=== PATIENT | male | born 1955 | race Caucasian/White ===

== ENCOUNTER 2016-04-28 14:23 | Emergency (ER) | payer BC ==
[2016-04-28] MEDS ORDERED: hydrALAZINE HCL 20 MG/ML 1 ML VIAL IVP STA (14:41)
--- NOTE | 2016-04-28 14:50 | ED ---
General Adult HPI - General Chief complaint: Recheck/Abnormal Lab/Rx Stated complaint: Dr Sent/ deidra HBP Time Seen by Provider: 04/28/16 14:32 Source: patient Mode of arrival: ambulatory Limitations: no limitations - History of Present Illness Initial comments: This is a 61-year-old male with a history of hypertension or presents emergency room for high blood pressure to his dentist office. Patient states he does have pretty bad whitecoat syndrome. He takes Diovan, hydralazine, and by starlike for his blood pressure. He has not missed any of these medications. He states he has no symptoms at this time. He does have history of A. fib however does not have any palpitations. No chest pain. No headache. No abdominal pain. He was sent in because the blood pressure is too high at the dentist office. - Related Data Home Medications Medication Instructions Recorded Confirmed Apixaban [Eliquis] 5 mg PO BID 11/30/15 04/28/16 Multivitamins, Thera [Multivitamin] 1 tab PO DAILY 11/30/15 04/28/16 Nebivolol HCl [Bystolic] 20 mg PO DAILY 11/30/15 04/28/16 Bethesda Fish Oil 1,600 mg PO DAILY 11/30/15 04/28/16 Valsartan/Hydrochlorothiazide 1 tab PO DAILY 11/30/15 04/28/16 [Valsartan-Hctz 320-25 mg Tab] Amiodarone [Cordarone] 200 mg PO DAILY 04/28/16 04/28/16 hydrALAZINE HCL [Apresoline] 25 mg PO BID 04/28/16 04/28/16 Allergies Allergy/AdvReac Type Severity Reaction Status Date / Time No Known Allergies Allergy Verified 04/28/16 15:16 Review of Systems ROS Statement: Those systems with pertinent positive or pertinent negative responses have been documented in the HPI. ROS Other: All systems not noted in ROS Statement are negative. Past Medical History Past Medical History: Atrial Fibrillation, Hypertension Additional Past Medical History / Comment(s): heart murmer, History of Any Multi-Drug Resistant Organisms: None Reported Past Surgical History: Hernia Repair Additional Past Surgical History / Comment(s): vasectomy Past Anesthesia/Blood Transfusion Reactions: No Reported Reaction Past Psychological History: No Psychological Hx Reported Smoking Status: Former smoker Past Alcohol Use History: None Reported Additional Past Alcohol Use History / Comment(s): quit smoking 2008, smoked for 20 yrs- 1/2 PPD Past Drug Use History: Marijuana Additional Drug Use History / Comment(s): none currently since 10/15/15 - Past Family History Mother Family Medical History: Cancer Father Family Medical History: Cancer General Exam - General Exam Comments Initial Comments: Constitutional: Awake alert Appears comfortable Head: Normocephalic atraumatic Eyes: no conjunctival injection No scleral icterus EOMI Neck: No JVD Supple Heart: Regular rate rhythm normal S1-S2 no murmurs Lungs: Clear to auscultation bilaterally No wheezing No rales Abdomen: Soft nondistended nontender Extremities: Non edematous DP pulses intact Radial pulses intact Neuro: A&Ox3 No focal neurologic deficits Psych: Appropriate mood and affect Limitations: no limitations Course Vital Signs 04/28/16 04/28/16 14:27 15:04 Temperature 97.9 F Pulse Rate 67 62 Respiratory 18 18 Rate Blood Pressure 219/103 186/88 O2 Sat by Pulse 99 97 Oximetry EKG Findings - EKG Comments: EKG Findings:: EKG showing sinus bradycardia with a rate of 57. No ST segment changes. T-wave inversion in lead 3. QTC is 445. RI interval is 216. Other intervals are normal. No ectopy. Medical Decision Making - Medical Decision Making This is a 61-year-old male who presents emergency department for hypertension. Blood pressure was elevated upon arrival at 222/109. The patient was given a dose of hydralazine here. Blood pressure now is 172/91. EKG was unremarkable. The patient was otherwise asymptomatic and does not require any further workup. I told her we can discharge him home. I told him that since beginning the hydralazine in the emergency department that I would make sure to check his blood pressure before he took his nighttime dose of hydralazine. If he looks like his blood pressure is well-controlled I would skip the nighttime dose of hydralazine. Told to return if any worsening or changing symptoms. All questions were answered. Disposition Clinical Impression: Hypertension Disposition: HOME SELF-CARE Condition: Stable Instructions: Hypertension (ED) Referrals: Estefania Overton MD [Primary Care Provider] - 1-2 days
[2016-04-28 16:11] VITALS: BP 168/86; PULSE 62; RESP 16; TEMP 98.6
== END 2016-04-28 16:00 | disposition home or self-care (01) ==
LOC: EC 14:23
DX: I10 Essential (primary) hypertension (principal); I48.91 Unspecified atrial fibrillation; Z87.891 Personal history of nicotine dependence; Z79.01 Long term (current) use of anticoagulants; Z79.899 Other long term (current) drug therapy
CPT/HCPCS: 99283; 96374; 93005; J0360

== ENCOUNTER → 2018-07-02 | Outpatient (CLI) | payer BC ==
[2018-07-02 13:34] LABS: HCT 45.3 % (39.0-53.0); HGB 14.9 gm/dL (13.0-17.5); MCH 29.8 pg (25.0-35.0); MCHC 32.9 g/dL (31.0-37.0); MCV 90.8 fL (80.0-100.0); Platelet Count 336 k/uL (150-450); RBC 4.99 m/uL (4.30-5.90); RDW 13.3 % (11.5-15.5); WBC 13.3 k/uL (3.8-10.6)
[2018-07-02 13:44] LABS: Anion Gap 11 mmol/L; Blood Urea Nitrogen 16 mg/dL (9-20); Carbon Dioxide 29 mmol/L (22-30); Chloride 97 mmol/L (98-107); Potassium 4.2 mmol/L (3.5-5.1); Sodium 137 mmol/L (137-145)
== END | disposition home or self-care (01) ==
LOC: LABWHC1 10:22
PROVIDERS: ATTEND Internal Medicine Interventional Cardiology
DX: Z01.812 Encounter for preprocedural laboratory examination (principal); I48.1 Persistent atrial fibrillation; R94.39 Abnormal result of other cardiovascular function study
CPT/HCPCS: 36415; 80051; 82565; 84520; 85027

== ENCOUNTER 2018-07-06 10:48 | Day surgery (SDC) | payer BC ==
[~2018-07-06 10:48] MED LIST: ALPRAZolam 0.25 MG TAB PO PRN; ALPRAZolam 0.5 MG TAB PO PRN; ASPIRIN 325 MG TAB PO STA; ATORVASTATIN 80 MG TAB PO STA; NITROGLYCERIN SL TABS 0.4 MG TAB SUBLINGUAL PRN; SODIUM CHLORIDE 0.9% 1,000 ML in EMPTY BAG 1 BAG IV ONE
[2018-07-06 11:18] VITALS: RESP 18
[2018-07-06] MEDS ORDERED: fentaNYL (PF) 50 MCG/ML 2 ML AMP IVP ONE (12:58)
[2018-07-06] MEDS ORDERED: MIDAZOLAM (PF) 2 MG/2 ML VIAL IVP ONE (13:00)
[2018-07-06] MEDS ORDERED: LIDOCAINE 1% INJ 10MG/ML (20 ML MDV) SQ ONE (13:00)
[2018-07-06] MEDS ORDERED: VERAPAMIL SYRINGE (5 MG/10 ML) INTRAARTER ONE ×2 (13:01→13:02)
[2018-07-06] MEDS ORDERED: SODIUM CHLORIDE 0.9% 1,000 ML IV ONE (13:01)
[2018-07-06] MEDS ORDERED: BIVALIRUDIN BOLUS 250 MG/50 ML IV ONE (13:12)
[2018-07-06] MEDS ORDERED: BIVALIRUDIN 250 MG in SODIUM CHLORIDE 0.9% 50 ML IV ONE (13:13)
[2018-07-06] MEDS ORDERED: IOPAMIDOL-370 100ML BTL INJ ONE ×2 (13:17→13:35)
[2018-07-06] MEDS ORDERED: CLOPIDOGREL 75 MG TAB PO ONE (13:17)
[2018-07-06] MEDS ORDERED: NITROGLYCERIN 1000MCG/10ML SYRINGE INTRACORON ONE (13:20)
[2018-07-06] MEDS ORDERED: IOPAMIDOL-370 50ML BTL INJ ONE (13:36)
[2018-07-06] MEDS ORDERED: NITROGLYCERIN SL TABS 0.4 MG TAB SUBLINGUAL PRN (13:51)
[2018-07-06] MEDS ORDERED: ATROPINE SULFATE 0.1 MG/ML 10ML SYRINGE IV PRN (13:51)
[2018-07-06] MEDS ORDERED: RX INFO: IV CONTRAST WAS GIVEN 1 EACH MISC MISCELLANE PRN (13:51)
[2018-07-06] MEDS ORDERED: MAG HYDROX/AL HYDROX/SIMETH 30 ML CUP PO PRN (13:51)
[2018-07-06] MEDS ORDERED: ZOLPIDEM 5 MG TAB PO PRN (13:51)
[2018-07-06] MEDS ORDERED: SODIUM CHLORIDE 0.9% 1,000 ML IV SCH (14:00)
[2018-07-06] MEDS ORDERED: hydrALAZINE HCL 50 MG TAB PO SCH (15:00)
--- NOTE | 2018-07-06 16:55 | CC ---
CARDIAC CATHETERIZATION REPORT Mr. Leo is a 63-year-old male with known history of hypertension, hyperlipidemia, chronic persistent atrial fibrillation, who has been complaining of progressive dyspnea on exertion. He underwent a stress test that revealed evidence of lateral wall ischemia. In view of that, recommendation made regarding cardiac catheterization. The procedure as well as risks and complications were discussed with the patient who is in full understanding and agreement. PROCEDURE: Patient was brought to the geochemical laboratory technician in a fasting semisedated state after receiving fentanyl and Benadryl and achieving moderate conscious sedated state. Using Xylocaine anesthesia and Seldinger technique, a 6-Andorran sheath was introduced in the right radial artery. Selective right and left coronary angiography was performed using 5- Andorran 3 and half bend right and left Ladonna catheter. Multiple views of the coronary arteries including hemiaxial views obtained. Following that, angioplasty and stenting was performed. Following that, a 5-Andorran tight pigtail catheter was introduced into the left ventricle and a 30 degree WILSON view of the left ventricle was obtained. Following that, catheter and sheaths were removed. Hemostasis was obtained with deployment of a TR band. There was no immediate complication. Patient is returned to his room in stable condition. FINDINGS: FLUOROSCOPY: There was mild calcification involving the left anterior descending artery. SELECTIVE CORONARY ANGIOGRAPHY: LEFT MAIN: This is a large-sized vessel bifurcating into the left circumflex, left anterior descending coronary artery. Left main coronary artery has no evidence of high- grade stenosis. LEFT ANTERIOR DESCENDING ARTERY: This is a large-sized vessel reaching toward the apex with a wraparound apex segment. The left anterior descending artery gives rise to a diagonal branch in the mid segment. The diagonal branch has a 50% plaque. The LAD has 60% plaque in the distal segment beyond that is vessel is small in caliber. LEFT CIRCUMFLEX: This is a nondominant vessel, large in caliber, giving rise to 3 obtuse marginal branches. In the mid segment, there is a long tubular lesion with area stenosis up to 99%. The rest of the vessel has no high-grade stenosis. RIGHT CORONARY ARTERY: This is a dominant vessel, large in caliber, bifurcating distally into PDA and posterolateral segment and branches. The right coronary artery in mid segment has a 20% plaque. Distally after the takeoff of the PDA and before 1 of the posterolateral branches has a 99% stenosis. Beyond that it gives rise to posterolateral branch and then subsequently is totally occluded with no significant antegrade flow. LEFT VENTRICULOGRAM: Left ventriculogram was performed in 30 degree WILSON view and revealed normal left ventricular size and systolic function. Ejection fraction is 60%. There was no significant mitral regurgitation. HEMODYNAMICS: There was no gradient across the aortic valve. The left ventricular end-diastolic pressure was 14-18 mmHg. CONCLUSION: 1. Critical stenosis involving the mid left circumflex. 2. Subtotally occluded right PLV with occluded branch of the PLV. 3. Collaterals to the right PLV from the left coronary system. 4. Significant disease in a very distal left anterior descending artery. RECOMMENDATION: In view of findings and anatomy, I have recommended proceeding with angioplasty and stenting of the left circumflex. The procedure as well as risks and complications were discussed with the patient who is in full understanding and agreement. MMCHRISTINE / SHERIDAN: [id number] /
--- NOTE | 2018-07-06 17:02 | PTCA ---
PERCUTANEOUSTRANS CORORONARY ANGIOGRAPHY Mr. Leo is a 63-year-old male with a known history of hypertension, hyperlipidemia, chronic persistent atrial fibrillation, who had been complaining of progressive dyspnea on exertion and had abnormal myocardial perfusion imaging. He underwent cardiac catheterization, was found to have critical stenosis in the left circumflex as well as subtotally occluded right PLV. In view of that, recommendation was made regarding angioplasty and stenting. The procedure as well as risks and complications were discussed with the patient, who was in full understanding and agreement. DESCRIPTION OF PROCEDURE: A 6-Lao FL3.5 guiding catheter was introduced into the system. After cannulating the left main, a 0.014 balanced medium-weight J-wire was advanced across the lesion, positioned in distal left circumflex. Subsequently a 2.5 x 12 mm Trek balloon was advanced and multiple inflations to a maximum of 8 atmospheres were done. Following that the balloon was removed and a 2.75 x 33 mm Xience Melissa stent was advanced, deployed and post dilated at 16 atmospheres. After the last inflation, after appropriate wait, the balloon and the guidewire were withdrawn back into the guiding catheter. Images were obtained and repeated. Those images revealed stable successful stenting. At that point the guiding catheter, the balloon and the guidewire were removed. Left ventriculogram was performed. Following that the sheath was removed. Hemostasis was obtained with deployment of a TR band. There was no immediate complication. Patient was returned to his room in stable condition. Of note, the patient received Angiomax per protocol as well as oral loading dose of clopidogrel. He had no chest discomfort or EKG changes with the inflations. RESULTS: Successful stenting of the mid left circumflex with reduction of stenosis from 99% to 0%. RECOMMENDATIONS: Patient will be continued on aspirin, Plavix and statin. The importance of dual antiplatelet treatment was discussed with the patient and his family, who are in full understanding and agreement. After 6 weeks, the aspirin will be stopped. He will be continued on Plavix and Eliquis. He will be admitted electively to undergo stenting of the right PLV. Duration of procedure was 36 minutes. MMODL / IJN: [id number] / ZEV
--- NOTE | 2018-07-06 17:02 | LTR ---
July 06, 2018 To: Dr. Estefania Overton Re: Levi Leo Dear Dr. Overton, I had the pleasure of performing cardiac catheterization and coronary angioplasty and stenting on Mr. Leo at [facility] on July 06, and a full copy of the procedure note will be forwarded to you. In brief, he was found to have a critical stenosis in the left circumflex and underwent successful stenting of that vessel using a drug-eluting stent. At the same time, he was found to have obstructive disease involving the right PLV and he will be admitted electively to undergo stenting of that vessel. I will keep you updated on his progress. Thank you again for allowing me to participate in his care. Please feel free to call with any questions. Sincerely, Calvin Colin M.D. JOSE / SHERIDAN: [phone] /
[2018-07-06 17:41] VITALS: BMI 27.2
[2018-07-06] MEDS ORDERED: LATANOPROST 0.005% OPHTH DROPS 2.5 ML BTL BOTH EYES SCH (18:00)
[2018-07-06] MEDS: hydrALAZINE HCL 50 MG TAB PO SCH (20:30)
[2018-07-06] MEDS ORDERED: amLODIPine 5 MG TAB PO STA (23:45)
[2018-07-07 07:07] LABS: Anion Gap 8 mmol/L; Blood Urea Nitrogen 16 mg/dL (9-20); Calcium 8.9 mg/dL (8.4-10.2); Carbon Dioxide 25 mmol/L (22-30); Chloride 104 mmol/L (98-107); Glucose 105 mg/dL (74-99); Potassium 3.6 mmol/L (3.5-5.1); Sodium 137 mmol/L (137-145)
--- NOTE | 2018-07-07 07:35 | PN ---
PROGRESS NOTE Mr. Leo is a 63-year-old male with known history of hypertension, hyperlipidemia, history of atrial fibrillation who had an abnormal myocardial perfusion imaging and symptoms of dyspnea. He underwent a cardiac catheterization was found to have critical stenosis involving the left circumflex as well as a totally occluded right PLV and significant disease prior to the bifurcation. He underwent stenting of the left circumflex. He is feeling well today. He is denying any chest pain. His breathing has been stable. He denies any dizziness or palpitation. He denies any nausea. He has been ambulating. He continued be on aspirin once a day, Plavix 75 mg daily, Lipitor 40 mg daily, gabapentin 300 mg daily, hydralazine 100 mg twice a day and 50 in the afternoon, hydrochlorothiazide 25 mg daily and Diovan 320 mg daily. PHYSICAL EXAMINATION: Blood pressure 139/90 with the heart rate in the 90s. LUNGS: Clear. HEART: Irregular, irregular. S1, S2. No S3. No rub. ABDOMEN: Soft, nontender. EXTREMITIES: No edema. Right radial pulse intact. LAB DATA: Lab data revealed BUN and creatinine 16 and 0.88, potassium 3.6. EKG revealed no acute changes. IMPRESSION: 1. Status post stenting of left circumflex. 2. Occluded right PLV. 3. Hypertension. 4. Hyperlipidemia. 5. Persistent chronic atrial fibrillation. RECOMMENDATION: Patient will be discharged home today and be evaluated in 1 week. If he is stable he will be readmitted electively to undergo stenting of the right PLV. MMODL / IJN: [id number] /
[2018-07-07 08:01] VITALS: BP 186/108; PULSE 95; TEMP 97.5
[2018-07-07] MEDS: hydrALAZINE HCL 50 MG TAB PO SCH (08:06)
[2018-07-07] MEDS ORDERED: GABAPENTIN 300 MG CAP PO SCH (09:00)
[2018-07-07] MEDS ORDERED: VALSARTAN 160 MG TAB PO SCH (09:00)
[2018-07-07] MEDS ORDERED: NEBIVOLOL 5 MG TAB PO SCH (09:00)
[2018-07-07] MEDS ORDERED: HYDROCHLOROTHIAZIDE 25 MG TAB PO SCH (09:00)
[2018-07-07] MEDS ORDERED: ATORVASTATIN 40 MG TAB PO SCH (09:00)
[2018-07-07] MEDS ORDERED: ASPIRIN 81 MG PO SCH (09:00)
[2018-07-07] MEDS ORDERED: CLOPIDOGREL 75 MG TAB PO SCH (12:00)
[2018-07-07] MEDS ORDERED: MULTIVITAMINS, THERA 1 EACH TAB PO SCH (12:00)
== END 2018-07-07 10:11 | disposition home or self-care (01) ==
LOC: OR 10:48 → EDSTATUS 12:00 → 3SCARD 13:35 → OR 07-07 10:11
PROVIDERS: ATTEND Internal Medicine Interventional Cardiology
DX: I25.10 Atherosclerotic heart disease of native coronary artery without angina pectoris (principal); I25.82 Chronic total occlusion of coronary artery; I10 Essential (primary) hypertension; I48.2 Chronic atrial fibrillation; E78.5 Hyperlipidemia, unspecified; Z87.891 Personal history of nicotine dependence; E78.00 Pure hypercholesterolemia, unspecified; Z79.899 Other long term (current) drug therapy; Z79.02 Long term (current) use of antithrombotics/antiplatelets; Z79.82 Long term (current) use of aspirin; Z82.49 Family history of ischemic heart disease and other diseases of the circulatory system
CPT/HCPCS: 93458; 80048; C9600; C1769 ×2; C1887; C1894; C1725; C1874; J2001; J3010; J0583; Q9967 ×2; J2250

== ENCOUNTER → 2020-04-09 | Outpatient (CLI) | payer BC ==
--- NOTE | 2020-04-10 12:39 | ECHOF ---
Referral Reason:I48.0 MEASUREMENTS -------- HEIGHT: 180.3 cm WEIGHT: 90.7 kg BP: RVIDd: 3.1 cm (< 3.3) IVSd: 1.3 cm (0.6 - 1.1) LVIDd: 3.8 cm (3.9 - 5.3) LVPWd: 1.3 cm (0.6 - 1.1) IVSs: 1.5 cm LVIDs: 2.0 cm LVPWs: 1.9 cm LAESV Index (A-L): 46.11 ml/m Ao Diam: 2.6 cm (2.0 - 3.7) AV Cusp: 1.5 cm (1.5 - 2.6) LA Diam: 3.9 cm (2.7 - 3.8) MV EXCURSION: 18.739 mm (> 18.000) MV EF SLOPE: 282 mm/s (70 - 150) EPSS: 0.4 cm RAP: 5.00 mmHg RVSP: 36.91 mmHg FINDINGS -------- Atrial fibrillation. This was a technically adequate study. The left ventricular size is normal. There is mild concentric left ventricular hypertrophy. Overa ll left ventricular systolic function is normal with, an EF between 55 - 60 %. Left ventricular talib limg pressure cannot be estimated due to Atrial fibrillation. The right ventricle is normal in size. LA is severely dilated >40 ml/m2 RA appears enlarged. Interatrial and interventricular septum intact. The aortic valve is trileaflet, and appears structurally normal. No aortic stenosis or regurgitation. The mitral valve is normal. Mild mitral regurgitation is present. The tricuspid valve appears structurally normal. Mild tricuspid regurgitation present. There is m ild pulmonary hypertension. The right ventricular systolic pressure, as measured by Doppler, is 36. 91mmHg. Trace/mild (physiologic) pulmonic regurgitation. The aortic root size is normal. Normal inferior vena cava with normal inspiratory collapse consistent with estimated right atrial pre ssure of 5 mmHg. There is a small, generalized pericardial effusion present. CONCLUSIONS -------- 1. There is mild concentric left ventricular hypertrophy. 2. Overall left ventricular systolic function is normal with, an EF between 55 - 60 %. 3. LA is severely dilated >40 ml/m2 4. RA appears enlarged. 5. The aortic valve is trileaflet, and appears structurally normal. No aortic stenosis or regurgitati on. 6. Mild mitral regurgitation is present. 7. Mild tricuspid regurgitation present. 8. There is mild pulmonary hypertension. 9. Trace/mild (physiologic) pulmonic regurgitation. 10. There is a small, generalized pericardial effusion present. NUISANCE ANIMAL DAMAGE CONTROL AGENT: Kay Eid RDCS
== END | disposition home or self-care (01) ==
LOC: RADECHMAIN 14:35
PROVIDERS: ATTEND Internal Medicine Critical Care Medicine
DX: I08.1 Rheumatic disorders of both mitral and tricuspid valves (principal); I31.3 Pericardial effusion (noninflammatory); I27.20 Pulmonary hypertension, unspecified
CPT/HCPCS: 93306

== ENCOUNTER → 2020-04-11 | Outpatient (CLI) | payer BC ==
--- NOTE | 2020-04-11 13:31 | FL ---
EXAMINATION TYPE: FL barium enema DATE OF EXAM: 04/11/2020 COMPARISON: NONE HISTORY: Incomplete colonoscopy today. Recent rectal bleeding. TECHNIQUE: A double contrast barium enema study is performed. Total of 2 minutes 48 seconds of fluor oscopic time. 24 images saved to PACS. FINDINGS: Millinery Blocker view of the abdomen shows overall non-obstructive bowel gas pattern. Vascular calcif ication seen in the bilateral pelvis. Enema study is performed. There is successful filling to the cecum. Evaluation is suboptimal due to r edundancy of sigmoid colon along with diffuse colonic diverticula particularly for polyps. No obstru cting or constricting lesion. Moderate diverticulosis throughout the sigmoid colon. Appendix was filled and appeared normal. The terminal ileum was refluxed and appears within normal l imits. IMPRESSION: Suboptimal study due to redundancy of colon, No obstructing or constricting lesion is id entified with successful filling to the cecum.
== END | disposition home or self-care (01) ==
LOC: RADFLMAIN 11:18
PROVIDERS: ATTEND Surgery
DX: K62.5 Hemorrhage of anus and rectum (principal)
CPT/HCPCS: 74270

== ENCOUNTER → 2020-09-13 | Outpatient (CLI) | payer BC ==
--- NOTE | 2020-09-13 13:10 | US ---
EXAMINATION TYPE: US scrotum with doppler. Grayscale and color Doppler Duplex imaging performed of t brittnee scrotum. DATE OF EXAM: 09/13/2020 COMPARISON: NONE CLINICAL HISTORY: N50.89 left scrotum swelling. EXAM MEASUREMENTS: TESTICLES: Right Testicle: 3.9 x 2.1 x 3.1 cm Left Testicle: 4.3 x 2.5 x 2.8 cm EPIDIDYMIS HEAD: Right Epididymis: 0.9 cm Left Epididymis: 0.6 cm Doppler performed to assess for testicular vascularity; good bilateral color flow and waveforms are s een. There is no evidence of testicular torsion. Presence of hydroceles: Yes, bilaterally. Left greater than right measuring 7.1 x 5.0 x 6.4 cm Presence of varicoceles: Yes, prominent varicocele on the right Right side varicocele bilateral hydroceles, small right and large left hydroceles IMPRESSION: 1. Prominent right varicocele. Due to asymmetric prominence on the right, lymphadenopathy or mass is not excluded. A CT abdomen and pelvis would be helpful. 2. Bilateral hydroceles, small on the right and large on the left.
[2020-09-13 13:30] LABS: Basophils # (A) 0.1 k/uL (0-0.2); Basophils % (A) 1 %; Eosinophils # (A) 0.4 k/uL (0-0.7); Eosinophils % (A) 4 %; HCT 35.7 % (39.0-53.0); HGB 12.3 gm/dL (13.0-17.5); Lymphocytes # (A) 1.2 k/uL (1.0-4.8); Lymphocytes % (A) 13 %; MCH 31.1 pg (25.0-35.0); MCHC 34.4 g/dL (31.0-37.0); MCV 90.5 fL (80.0-100.0); Mean Platelet Volume 6.8; Monocytes # (A) 0.8 k/uL (0-1.0); Monocytes % (A) 8 %; Neutrophils # (A) 7.1 k/uL (1.3-7.7); Neutrophils % (A) 73 %; Platelet Count 231 k/uL (150-450); RBC 3.95 m/uL (4.30-5.90); RDW 13.7 % (11.5-15.5); WBC 9.7 k/uL (3.8-10.6)
== END | disposition home or self-care (01) ==
LOC: RADUSWWP 12:14
PROVIDERS: ATTEND Surgery
DX: I86.1 Scrotal varices (principal); N43.3 Hydrocele, unspecified
CPT/HCPCS: 76870; 85025; 93975

== ENCOUNTER → 2020-09-25 | Outpatient (CLI) | payer BC ==
--- NOTE | 2020-09-25 16:15 | CT ---
"EXAMINATION TYPE: CT abdomen pelvis w con DATE OF EXAM: 09/25/2020 COMPARISON: None HISTORY: Varicocele. CT DLP: 1341.2 mGycm Automated exposure control for dose reduction was used. TECHNIQUE: Helical acquisition of images from the lung bases through the pelvis have been completed. CONTRAST: Performed with Oral Contrast and with IV Contrast, patient injected with 100 mL of Isovue M300. FINDINGS: There is a pericardial effusion, maximal thickness posteriorly approximately 17 to 18 mm, i nferiorly approximately 2.5 cm. The heart is enlarged. There are coronary artery calcifications. Post erior diaphragmatic hernias containing fat LUNG BASES: No significant abnormality is appreciated. AORTA: No significant abnormality is appreciated. LIVER/GB: No significant abnormality is appreciated. PANCREAS: No significant abnormality is seen. SPLEEN: No significant abnormality is seen. ADRENALS: Small right adrenal nodule is noted measuring 13 mm KIDNEYS: Cortical cysts are associated with the left and right kidney, largest on the right in exophy tic location laterally measures 3.8 cm, upper pole left kidney lesion measures 2.6 cm REPRODUCTIVE ORGANS: Suspect a left-sided hydrocele is present. BOWEL: Left inguinal hernia contains bowel loops. No evident bowel obstruction. Diverticular changes associated with the markedly redundant sigmoid colon which courses to the right of midline before en tering the inguinal hernia to the left of midline. FREE AIR: No Free Air visible. ASCITES: None visible. PELVIC ADENOPATHY: None visualized. RETROPERITONEAL ADENOPATHY: No Retroperitoneal Adenopathy visible. URINARY BLADDER: No significant abnormality is seen. OSSEOUS STRUCTURES: Degenerative disc changes and facet arthropathy noted at the lower lumbar spine. . IMPRESSION: THERE IS A PERICARDIAL EFFUSION, CARDIOMEGALY, CORONARY ARTERY DISEASE. DIVERTICULOSIS AND INGUINAL H ERNIA CONTAINING COLON. A Yellow level critical message alert has been initiated for Reji Alonzo MD via the [employer] 36 0 | Critical Results System on 09/25/2020 4:12 PM. This message alert has been sent to Reji Alonzo MD via the preferences provided by the clinician for the receipt of Radiology Critical Findings. [facility], [place] [id number]."
== END | disposition home or self-care (01) ==
LOC: RADCTMAIN 12:39
PROVIDERS: ATTEND Surgery
DX: K57.30 Diverticulosis of large intestine without perforation or abscess without bleeding (principal); K40.90 Unilateral inguinal hernia, without obstruction or gangrene, not specified as recurrent
CPT/HCPCS: 74177; Q9967 ×2

== ENCOUNTER → 2020-09-28 | Day surgery (SDC) | payer BC ==
[2020-09-27 09:45] VITALS: BMI 27.1
[~2020-09-28] MED LIST changes: +ACETAMINOPHEN TAB 325 MG TAB PO SCH; +ACETAMINOPHEN TAB 500 MG TAB PO PRN; -ALPRAZolam 0.25 MG TAB PO PRN; -ALPRAZolam 0.5 MG TAB PO PRN; -ASPIRIN 325 MG TAB PO STA; -ATORVASTATIN 80 MG TAB PO STA; +BUPIVACAINE (PF) 0.25% 30 ML VIAL SQ ONE; +DEXAMETHASONE SOD PHOSPHATE 4 MG/ML 1 ML VIAL IV ONE; +GLYCOPYRROLATE 0.2 MG/ML 2 ML VIAL ONE; +HEPARIN SODIUM,PORCINE/PF 5,000 UNIT/0.5 ML SYRINGE SQ PRN; +HYDROmorphone (PF) 1 MG/ML ONE; +HYDROmorphone 0.5 MG/0.5 ML SYRINGE IVP PRN; +IBUPROFEN 600 MG TAB PO SCH; +LACTATED RINGERS 1,000 ML IV ONE; +LACTATED RINGERS 1,000 ML IV SCH; +LIDOCAINE 1% (10MG/ML) FOR IV START INTRADERMA PRN; +LIDOCAINE 1% INJ 10MG/ML (20 ML MDV) ONE; +MIDAZOLAM 2 MG/2 ML VIAL IV ONE; +MIDAZOLAM 2 MG/2 ML VIAL ONE; +NEOSTIGMINE 1 MG/ML 10 ML VIAL ONE; -NITROGLYCERIN SL TABS 0.4 MG TAB SUBLINGUAL PRN; +ONDANSETRON 4 MG/2 ML VIAL IVP ONE; +PROPOFOL 10 MG/ML 20 ML VIAL IV ONE; +ROCURONIUM 10 MG/ML (5 ML VIAL) IV ONE; +SCOPOLAMINE 1.5MG/72HR PATCH TRANSDERM ONE; -SODIUM CHLORIDE 0.9% 1,000 ML in EMPTY BAG 1 BAG IV ONE; +SUCCINYLCHOLINE CHLORIDE 100 MG/5 ML SYR IV ONE; +TAMSULOSIN 0.4 MG CAP.ER.24H PO ONE; +fentaNYL (PF) 50 MCG/ML 2 ML AMP ONE
--- NOTE | 2020-09-28 07:42 | P.HPADDEND ---
H&P Addendum H&P Addendum Date: 09/28/20 Patient here today for elective repair left inguinal hernia. A scrotal swelling was evaluated by ultrasound and confirmed to be a large hydrocele. There was no varicocele seen as well and for that reason CAT scan was advised by radiology. Radiology read the CAT scan is having the hernia, diaphragmatic hernia, kidney cysts, and a pericardial effusion. Patient was recently seen by cardiology. The CAT scan was reviewed by the grave cleaner and he was cleared for surgery. No other complaints since recent H&P from 08/29. He thinks his hydrocele is smaller at this time.
--- NOTE | 2020-09-28 09:50 | P.OP ---
Date of Procedure: 09/28/20 Procedure(s) Performed: PREOPERATIVE DIAGNOSIS: Recurrent left inguinal hernia POSTOPERATIVE DIAGNOSIS: Same PROCEDURE: Robotic-assisted laparoscopic repair left inguinal hernia with mesh SURGEON: Dr. Alonzo ANESTHESIA: General OPERATIVE PROCEDURE DETAILS: Patient was placed in the operating table in the supine position. The patient was placed under general anesthesia. The abdomen was prepped and draped in usual sterile fashion. A small curvilinear supraumbilical incision was made. The fascia was retracted anteriorly with [place] forceps. The Veress needle was inserted. The saline drop test was normal. Insufflation took place to 15 mmHg. An 8 mm trocar was placed into the peritoneal cavity. 2 additional 8 mm trochars were placed in the right upper quadrant and left upper quadrant under visualization. The robotic arms were then brought in and docked into place. The fenestrated bipolar was used in the left arm and the laparoscopic byron was utilized in the right arm. A 30 8 mm scope was used in the up position. The peritoneal cavity was inspected. The patient had adhesions both in the right lower quadrant and left lower quadrant. The left inguinal hernia was visualized. A portion of the right groin was covered with adhesions but I was not able to visualize a hernia. The patient had colon entering into the hernia despite reducing it preoperatively. The left sided peritoneum was incised in a horizontal fashion cephalad to the internal inguinal ring. Following that careful dissection of the preperitoneal space took place. This took place using both electrocautery, sharp dissection but primarily blunt dissection. Visualization of the pubic tubercle and Eulogio's li gament took place medially. Full dissection took place laterally as well. The hernia sac was fully dissected and reduced. We were able to visualize the previously placed preperitoneal mesh that had a ball shape. The hernia sac was partially adherent to this and this was able to be dissected using blunt dissection and cautery. Once we had adequate space the extra-large Bard 3-D mid mesh was advanced into the preperitoneal space and flattened out appropriately to cover all potential hernia sites. This was sutured medially to the previously placed mesh using a absorbable 20V lock suture. The peritoneal defect was then closed using a absorbable 2-0 VLok suture. The hernia sac was incorporated into the peritoneal closure. The pneumoperitoneum was then evacuated. The skin of all 3 sites was closed using a 4-0 Monocryl stitch. Skin glue was then applied. HERNIA CHARACTERISTICS: Length: 10-12 cm Width: 2 cm Type: Indirect inguinal TYPE OF MESH USED: Bard extra-large 3-D mid LOCATION OF MESH: Preperitoneal FIXATION: 20V lock DISPOSITION: Stable to recovery room
[2020-09-28 10:02] VITALS: TEMP 96.8
[2020-09-28 10:50] VITALS: BP 155/82; PULSE 84; RESP 17
== END ==
LOC: OR 06:15
PROVIDERS: ATTEND Surgery
DX: K40.91 Unilateral inguinal hernia, without obstruction or gangrene, recurrent (principal); I10 Essential (primary) hypertension; C67.9 Malignant neoplasm of bladder, unspecified; C34.90 Malignant neoplasm of unspecified part of unspecified bronchus or lung; Z79.01 Long term (current) use of anticoagulants; Z79.82 Long term (current) use of aspirin
CPT/HCPCS: 49650; C1781; J2250; J1100; J2710; J0690; J2405; J2001; J3010; J1170; J0330; J2704; J1644

== ENCOUNTER 2020-12-25 16:17 | Inpatient (IN) | payer BC ==
[2020-12-25] MEDS ORDERED: SODIUM CHLORIDE 0.9% 1,000 ML IV STA (17:17)
[2020-12-25] MEDS ORDERED: MORPHINE SULFATE 4 MG/ML SYRINGE IV STA (17:17)
[2020-12-25] MEDS ORDERED: ONDANSETRON 4 MG/2 ML VIAL IVP STA (17:17)
--- NOTE | 2020-12-25 17:20 | ED ---
General Adult HPI - General Chief complaint: Abdominal Pain Stated complaint: Abdominal pain Time Seen by Provider: 12/25/20 16:52 Source: patient Mode of arrival: ambulatory Limitations: no limitations - History of Present Illness Initial comments: 65-year-old male with a past medical history of atrial fibrillation, hypertension, hydrocele, left sided inguinal hernia repair 3 months ago presents to the emergency room for abdominal pain. Patient states last night he noticed he had right-sided abdominal pain. Today it has continued to worsen. Patient states movement does hurt it. He denies any radiating pain. Denies nausea or vomiting. States that 3 days ago he did have diarrhea but took Imodium and it resolved. Patient has not had any fevers or chills. Patient denies history of appendectomy. Patient has surgical history the Dr. Alonzo.Patient has no other complaints at this time including shortness of breath, chest pain, nausea or vo miting, headache, or visual changes. - Related Data Home Medications Medication Instructions Recorded Confirmed Apixaban [Eliquis] 5 mg PO BID 11/30/15 12/25/20 Nebivolol HCl [Bystolic] 20 mg PO DAILY 11/30/15 12/25/20 Valsartan/Hydrochlorothiazide 1 tab PO DAILY 11/30/15 12/25/20 [Valsartan-Hctz 320-25 mg Tab] Latanoprost/Pf [Latanoprost 0.005% 1 drop BOTH EYES HS 09/27/20 12/25/20 Eye Drop] Multivit-Min/Folic/Vit K/Lycop 1 tab PO HS 09/27/20 12/25/20 [Men's Multivitamin Tablet] Alpha Lipoic Acid 300mg 300 mg PO BID 12/25/20 12/25/20 Aspirin 81 mg PO HS 12/25/20 12/25/20 Colchicine 0.6 mg PO DAILY PRN 12/25/20 12/25/20 Potassium Chloride ER [K-Dur 10] 10 meq PO HS 12/25/20 12/25/20 diazePAM [Valium] 5 mg PO DAILY PRN 12/25/20 12/25/20 hydrALAZINE HCL [Apresoline] 100 mg PO BID 12/25/20 12/25/20 Previous Rx's Medication Instructions Recorded Atorvastatin [Lipitor] 40 mg PO DAILY #90 tab 07/07/18 Allergies Allergy/AdvReac Type Severity Reaction Status Date / Time No Known Allergies Allergy Verified 12/25/20 18:06 Review of Systems ROS Statement: Those systems with pertinent positive or pertinent negative responses have been documented in the HPI. ROS Other: All systems not noted in ROS Statement are negative. Past Medical History Past Medical History: Atrial Fibrillation, Hypertension Additional Past Medical History / Comment(s): heart murmer, sleep apnea, hydrocele History of Any Multi-Drug Resistant Organisms: None Reported Past Surgical History: Hernia Repair Additional Past Surgical History / Comment(s): vasectomy Past Anesthesia/Blood Transfusion Reactions: No Reported Reaction Past Psychological History: No Psychological Hx Reported Smoking Status: Never smoker Past Alcohol Use History: Rare Past Drug Use History: Marijuana - Past Family History Mother Family Medical History: Cancer Additional Family Medical History / Comment(s): LUNG CANCER Father Family Medical History: Cancer Additional Family Medical History / Comment(s): BLADDER CANCER General Exam Limitations: no limitations General appearance: alert Head exam: Present: atraumatic Eye exam: Present: normal appearance, PERRL, EOMI. Absent: scleral icterus, conjunctival injection ENT exam: Present: normal exam, mucous membranes moist Neck exam: Present: normal inspection, full ROM. Absent: tenderness Respiratory exam: Present: normal lung sounds bilaterally. Absent: respiratory distress, wheezes Cardiovascular Exam: Present: regular rate, normal rhythm, normal heart sounds GI/Abdominal exam: Present: soft, tenderness (Right-sided lower abdominal tenderness. No left or upper abdominal tenderness.), normal bowel sounds. Absent: distended Neurological exam: Present: alert Course Vital Signs 12/25/20 12/25/20 16:30 17:32 Temperature 98.3 F Pulse Rate 88 Respiratory 20 18 Rate Blood Pressure 128/72 O2 Sat by Pulse 96 Oximetry Medical Decision Making - Medical Decision Making Vitals are stable. Patient is well-appearing, nontoxic. CBC does show a leukocytosis of 12.5. CMP unremarkable. Lactic acid is normal. CT abdomen and pelvis did show focal diverticulitis of the mid sigmoid colon as above with a small. Diverticular abscess which appears new compared with old exam. There is a left-sided scrotal hernia noted which patient is aware of. At this time patient was started on Zosyn, blood cultures pending. Case is discussed with Dr. Overton who does accept the admission. Patient's surgeon is Dr. Alonzo who we will place on consult. EKG will be obtained. Patient will be kept nothing by mouth after midnight. - Lab Data Result diagrams: 12/25/20 17:46 12/25/20 17:46 Lab Results 12/25/20 12/25/20 12/25/20 Range/Units 17:46 17:46 17:46 WBC 12.5 H (3.8-10.6) k/uL RBC 4.15 L (4.30-5.90) m/uL Hgb 13.2 (13.0-17.5) gm/dL Hct 38.7 L (39.0-53.0) % MCV 93.3 (80.0-100.0) fL MCH 31.9 (25.0-35.0) pg MCHC 34.2 (31.0-37.0) g/dL RDW 12.8 (11.5-15.5) % Plt Count 281 (150-450) k/uL MPV 6.9 Neutrophils % 78 % Lymphocytes % 10 % Monocytes % 6 % Eosinophils % 3 % Basophils % 1 % Neutrophils # 9.8 H (1.3-7.7) k/uL Lymphocytes # 1.3 (1.0-4.8) k/uL Monocytes # 0.7 (0-1.0) k/uL Eosinophils # 0.4 (0-0.7) k/uL Basophils # 0.1 (0-0.2) k/uL Sodium 130 L (137-145) mmol/L Potassium 3.7 (3.5-5.1) mmol/L Chloride 96 L (98-107) mmol/L Carbon Dioxide 23 (22-30) mmol/L Anion Gap 11 mmol/L BUN 17 (9-20) mg/dL Creatinine 0.86 (0.66-1.25) mg/dL Est GFR (CKD-EPI)AfAm >90 (>60 ml/min/1.73 sqM) Est GFR (CKD-EPI)NonAf >90 (>60 ml/min/1.73 sqM) Glucose 99 (74-99) mg/dL Plasma Lactic Acid Jimy (0.7-2.0) mmol/L Calcium 9.2 (8.4-10.2) mg/dL Total Bilirubin 0.6 (0.2-1.3) mg/dL AST 26 (17-59) U/L ALT 20 (4-49) U/L Alkaline Phosphatase 121 (38-126) U/L Total Protein 6.7 (6.3-8.2) g/dL Albumin 3.9 (3.5-5.0) g/dL Amylase 48 (30-110) U/L Lipase 56 (23-300) U/L Urine Color Light Yellow Urine Appearance Clear (Clear) Urine pH 6.0 (5.0-8.0) Ur Specific [place] 1.008 (1.001-1.035) Urine Protein Negative (Negative) Urine Glucose (UA) Negative (Negative) Urine Ketones Negative (Negative) Urine Blood Negative (Negative) Urine Nitrite Negative (Negative) Urine Bilirubin Negative (Negative) Urine Urobilinogen <2.0 (<2.0) mg/dL Ur Leukocyte Esterase Negative (Negative) 12/25/20 Range/Units 17:46 WBC (3.8-10.6) k/uL RBC (4.30-5.90) m/uL Hgb (13.0-17.5) gm/dL Hct (39.0-53.0) % MCV (80.0-100.0) fL MCH (25.0-35.0) pg MCHC (31.0-37.0) g/dL RDW (11.5-15.5) % Plt Count (150-450) k/uL MPV Neutrophils % % Lymphocytes % % Monocytes % % Eosinophils % % Basophils % % Neutrophils # (1.3-7.7) k/uL Lymphocytes # (1.0-4.8) k/uL Monocytes # (0-1.0) k/uL Eosinophils # (0-0.7) k/uL Basophils # (0-0.2) k/uL Sodium (137-145) mmol/L Potassium (3.5-5.1) mmol/L Chloride (98-107) mmol/L Carbon Dioxide (22-30) mmol/L Anion Gap mmol/L BUN (9-20) mg/dL Creatinine (0.66-1.25) mg/dL Est GFR (CKD-EPI)AfAm (>60 ml/min/1.73 sqM) Est GFR (CKD-EPI)NonAf (>60 ml/min/1.73 sqM) Glucose (74-99) mg/dL Plasma Lactic Acid Jimy 1.1 (0.7-2.0) mmol/L Calcium (8.4-10.2) mg/dL Total Bilirubin (0.2-1.3) mg/dL AST (17-59) U/L ALT (4-49) U/L Alkaline Phosphatase (38-126) U/L Total Protein (6.3-8.2) g/dL Albumin (3.5-5.0) g/dL Amylase (30-110) U/L Lipase (23-300) U/L Urine Color Urine Appearance (Clear) Urine pH (5.0-8.0) Ur Specific [place] (1.001-1.035) Urine Protein (Negative) Urine Glucose (UA) (Negative) Urine Ketones (Negative) Urine Blood (Negative) Urine Nitrite (Negative) Urine Bilirubin (Negative) Urine Urobilinogen (<2.0) mg/dL Ur Leukocyte Esterase (Negative) Disposition Clinical Impression: Leukocytosis, Diverticulitis, Abscess Disposition: ADMITTED IP TO THIS HOSP Is patient prescribed a controlled substance at d/c from ED?: No Referrals: Estefania Overton MD [Primary Care Provider] - 1-2 days Time of Disposition: 20:08
[2020-12-25 17:49] LABS: Appearance,Urine Clear (Clear); Bilirubin,Urine Negative (Negative); Blood,Urine Negative (Negative); Color,Urine Light Yellow; Glucose,Urine (UA) Negative (Negative); Ketones,Urine Negative (Negative); Leukocyte Esterase,Urine Negative (Negative); Nitrite,Urine Negative (Negative); Protein,Urine Negative (Negative); Specific Gravity,Urine 1.008 (1.001-1.035); Urobilinogen,Urine <2.0 mg/dL (<2.0)
[2020-12-25 17:50] LABS: Basophils # (A) 0.1 k/uL (0-0.2); Basophils % (A) 1 %; Eosinophils # (A) 0.4 k/uL (0-0.7); Eosinophils % (A) 3 %; HCT 38.7 % (39.0-53.0); HGB 13.2 gm/dL (13.0-17.5); Lymphocytes # (A) 1.3 k/uL (1.0-4.8); Lymphocytes % (A) 10 %; MCH 31.9 pg (25.0-35.0); MCHC 34.2 g/dL (31.0-37.0); MCV 93.3 fL (80.0-100.0); Mean Platelet Volume 6.9; Monocytes # (A) 0.7 k/uL (0-1.0); Monocytes % (A) 6 %; Neutrophils # (A) 9.8 k/uL (1.3-7.7); Neutrophils % (A) 78 %; Platelet Count 281 k/uL (150-450); RBC 4.15 m/uL (4.30-5.90); RDW 12.8 % (11.5-15.5); WBC 12.5 k/uL (3.8-10.6)
[2020-12-25 18:02] LABS: ALT 20 U/L (4-49); AST 26 U/L (17-59); African American GFR (CKD) >90 (>60 ml/min/1.73 sqM); Albumin 3.9 g/dL (3.5-5.0); Alkaline Phosphatase 121 U/L (38-126); Amylase 48 U/L (30-110); Anion Gap 11 mmol/L; Blood Urea Nitrogen 17 mg/dL (9-20); Calcium 9.2 mg/dL (8.4-10.2); Carbon Dioxide 23 mmol/L (22-30); Chloride 96 mmol/L (98-107); Glucose 99 mg/dL (74-99); Lipase 56 U/L (23-300); Non-African American GFR(CKD) >90 (>60 ml/min/1.73 sqM); Potassium 3.7 mmol/L (3.5-5.1); Sodium 130 mmol/L (137-145); Total Bilirubin 0.6 mg/dL (0.2-1.3); Total Protein 6.7 g/dL (6.3-8.2)
--- NOTE | 2020-12-25 19:02 | CT ---
EXAMINATION TYPE: CT abdomen pelvis w con DATE OF EXAM: 12/25/2020 COMPARISON: 09/25/2020 HISTORY: RLQ pain CT DLP: 1281.5 mGycm Automated exposure control for dose reduction was used. CONTRAST: Performed with IV Contrast, patient injected with 100 mL of Isovue 300. Images obtained from the diaphragm to the floor the pelvis with IV contrast. There is a mild pericardial effusion. Lung bases are clear. There is no pleural effusion. Pericardial fluid measures up to 13 mm in thickness. Liver spleen stomach pancreas appear intact. The bile ducts are not dilated. Gallbladder appears norm al. There is no adrenal mass. Kidneys show satisfactory contrast opacification. There is no hydronephrosi s. Ureters are not dilated. There are bilateral renal cortical cysts that measure up to 3.7 cm. There is no hydronephrosis. There is no evidence of solid renal mass. There is no retroperitoneal adenopat hy. Bladder distends smoothly. There is left side scrotal hernia that is incompletely evaluated. Ther e is possible high location of the left testicle. There is some fat stranding around the left lateral aspect of the MID sigmoid colon with small air co llection measuring 1 cm that is consistent with peridiverticular abscess. This is seen on coronal margie ge 36. There is no ascites or free air. There is no bowel obstruction. Appendix appears normal. Small bowel pattern is fairly normal. There is minimal stranding around both kidneys. The lumbar vertebra have normal alignment. There is no compression fracture. Posterior elements are i ntact. Disc spaces are fairly normal. Bony pelvis is intact. The hip joints are intact. IMPRESSION: There is evidence for focal diverticulitis of the mid sigmoid colon as above. Small peridiverticular abscess. This appears new compared to old exam. Normal appendix. Left side scrotal hernia or high position of the testicle. There is clearing of the incarcerated left inguinal hernia containing sigmoid colon compared to old exam. Mild perinephric fat stranding unchanged. Pericardial effusion unchanged.
[2020-12-25] MEDS ORDERED: PIPERACILLIN-TAZOBACTAM 3.375 GM in SODIUM CHLORIDE 0.9% 100 ML IVPB STA (19:33)
[2020-12-25] MEDS ORDERED: MORPHINE SULFATE 4 MG/ML SYRINGE IV PRN (20:09)
[2020-12-25] MEDS ORDERED: NALOXONE 0.4 MG/ML 1 ML VIAL IV PRN (20:09)
[2020-12-25] MEDS ORDERED: ONDANSETRON 4 MG/2 ML VIAL IVP PRN (20:09)
[2020-12-26 04:29] LABS: Basophils # (A) 0.1 k/uL (0-0.2); Basophils % (A) 1 %; Eosinophils # (A) 0.4 k/uL (0-0.7); Eosinophils % (A) 4 %; HCT 36.6 % (39.0-53.0); HGB 12.5 gm/dL (13.0-17.5); Lymphocytes # (A) 1.3 k/uL (1.0-4.8); Lymphocytes % (A) 13 %; MCH 32.3 pg (25.0-35.0); MCHC 34.1 g/dL (31.0-37.0); Mean Platelet Volume 6.9; Monocytes # (A) 0.7 k/uL (0-1.0); Monocytes % (A) 7 %; Neutrophils # (A) 7.3 k/uL (1.3-7.7); Neutrophils % (A) 73 %; Platelet Count 259 k/uL (150-450); RBC 3.85 m/uL (4.30-5.90); RDW 12.8 % (11.5-15.5); WBC 9.9 k/uL (3.8-10.6)
[2020-12-26] MEDS: PIPERACILLIN-TAZOBACTAM 3.375 GM in SODIUM CHLORIDE 0.9% 100 ML IVPB SCH ×3 (05:07→21:21)
[2020-12-26] MEDS: SODIUM CHLORIDE 0.9% 1,000 ML IV SCH ×4 (05:07→21:21)
[2020-12-26] MEDS ORDERED: NON FORMULARY DRUG (Valsartan/Hydrochlorothiazide [Valsartan-Hctz 320-25 Mg Tab] 1 EACH Ta PO SCH (09:00)
--- NOTE | 2020-12-26 09:43 | P.HPIM ---
History of Present Illness H&P Date: 12/26/20 HISTORY OF PRESENT ILLNESS This is a 65-year-old male patient of Dr. Overton with asthma, history of hypertension, hyperlipidemia, chronic atrial fibrillation on eliquis, glaucoma. Patient states that he has been diagnosed with diverticulosis in the past but has never had diverticulitis. About 30 hours ago he started having right lower quadrant abdominal pain which continued and worsened. He denies having any vomiting. Prior to this pain, patient had diarrhea about 48 hours prior, took 1 Imodium and diarrhea resolved. He normally has a bowel movement every day. He denies having any blood in his stools. He is known to have a left-sided inguinal hernia repair 09/28/2020. He denies having any nuts or seeds recently. Patient came into [facility] emergency center for evaluation, vital signs were stable. Initial CBC on WBC 12.5, hemoglobin 13.2 and platelet count 281. Sodium 130, potassium 3.7, chloride 96, creatinine 0.86, CMP otherwise within normal limits. Urinalysis negative. Coronavirus PCR not detected. CAT scan of the abdomen and pelvis with contrast revealed focal diverticulitis of the mid sigmoid colon. Small. Diverticular abscess. Normal appendix. Left side scrotal hernia or high position of the testicle. There is clearing of the incarcerated left inguinal hernia containing sigmoid colon compared to old exam. Mild rayshawn-nephrotic stranding unchanged. Pericardial effusion unchanged. Patient was started on IV Zosyn, IV fluids, morphine for pain and admitted to the [facility] floor. Patient is seen in the emergency center waiting for a bed. REVIEW OF SYSTEMS Constitutional: No fever, no chills, no night sweats. No weight change. No weakness, fatigue or lethargy. No daytime sleepiness. EENT: No headache. No blurred vision or double vision, no loss of vision. No loss of Hearing, no ringing in the ears, no dizziness. No nasal drainage or congestion. No epistaxis. No sore throat. Lungs: No shortness of breath, cough, no sputum production. No wheezing. Cardiovascular: No chest pain, no lower extremity edema. No palpitations. No paroxysmal nocturnal dyspnea. No orthopnea. No lightheadedness or dizziness. No syncopal episodes. Abdominal: Reports abdominal pain. No nausea, vomiting. Reports diarrhea that resolved. No constipation. No bloody or tarry stools.. No loss of appetite. Genitourinary: No dysuria, increased frequency, urgency. No urinary retention. Musculoskeletal: No myalgias. No muscle weakness, no gait dysfunction, no frequent falls. No back pain. No neck pain. Integumentary: No wounds, no lesions. No rash or pruritus. No unusual bruising. No change in hair or nails. Neurologic: No aphasia. No facial droop. No change in mentation. No head injury. No headache. No paralysis. No paresthesia. Psychiatric: No depression. No anxiety. No mood swings. Endocrine: No abnormal blood sugars. No weight change. MEDICAL HISTORY Hypertension Hyperlipidemia Chronic atrial fibrillation Coronary artery disease Glaucoma Neuropathy SURGICAL HISTORY Left inguinal hernia repair 09/28/2020 Vastectomy Heart catheterization and stenting of the mid left circumflex 07/06/2018 JAMAL 12/03/2015 SOCIAL HISTORY Patient was a smoker of half a pack per day from 1987 until 2008. Patient drinks alcohol 2-3 times per week. No marijuana or illicit drug use. FAMILY HISTORY Mother is at age 88 from bladder cancer. Mother is at age 77 from lung cancer. Brother at age 69 and he is a total of 2 brothers. Patient has 2 sons with no major medical problems.. PHYSICAL EXAMINATION Gen: This is a 65-year-old male. Patient is resting on the ER stretcher and appears to be comfortable in no acute distress. HEENT: Head is atraumatic, normocephalic. Pupils equal, round. Sclerae is anicteric. NECK: Supple. No JVD. No lymphadenopathy. No thyromegaly. LUNGS: Clear to auscultation. No wheezes or rhonchi. No intercostal retractions. HEART: Irregularly irregular, first heart sound is depressed, second heart sound is normal. ABDOMEN: Soft. Bowel sounds are present. No masses. Mild right lower quadrant tenderness. EXTREMITIES: No pedal edema. No calf tenderness. NEUROLOGICAL: Patient is awake, alert and oriented x3. Cranial nerves 2 through 12 are grossly intact. ASSESSMENT AND PLAN 1. Acute focal diverticulitis of the mid sigmoid colon and small peridiverti cular abscess. Patient has been started on IV Zosyn 3.375 g IV piggyback every 8 hours, IV fluids 130s ML's per hour, continue Zofran 4 mg IV every 8 hours, morphine 4 mg IV every 4 hours as needed for pain. 2. Hypertension. Continue hydralazine 100 mg twice daily, hydrochlorothiazide 25 mg daily, bystolic 20 mg daily, valsartan 320 mg daily. 3. Hyperlipidemia. Continue Lipitor 40 mg daily. 4. Chronic atrial fibrillation. Continue eliquis 5 mg twice daily, beta yamil. 5. Glaucoma. Continue eyedrops. 6. Coronary artery disease status post stent of the mid left circumflex in 201 9. Continue aspirin 81 mg daily, Lipitor 40 mg daily, beta yamil and ARB. 7. GI prophylaxis. Protonix 40 mg IV daily. 8. DVT prophylaxis. Continue eliquis. 9. COVID-19 testing negative. Patient has been hospitalized during a pandemic. Patient will be admitted to the hospital for a minimum of 2 night stay. DISCHARGE PLAN home. Impression and plan of care have been directed as dictated by the signing physician. Gianna Maradiaga nurse practitioner acting as scribe for signing physician. Past Medical History Past Medical History: Atrial Fibrillation, Hypertension Additional Past Medical History / Comment(s): heart murmer, sleep apnea, hydrocele History of Any Multi-Drug Resistant Organisms: None Reported Past Surgical History: Hernia Repair Additional Past Surgical History / Comment(s): vasectomy Past Anesthesia/Blood Transfusion Reactions: No Reported Reaction Past Psychological History: No Psychological Hx Reported Smoking Status: Never smoker Past Alcohol Use History: Rare Past Drug Use History: Marijuana - Past Family History Mother Family Medical History: Cancer Additional Family Medical History / Comment(s): LUNG CANCER Father Family Medical History: Cancer Additional Family Medical History / Comment(s): BLADDER CANCER Medications and Allergies Home Medications Medication Instructions Recorded Confirmed Type Apixaban [Eliquis] 5 mg PO BID 11/30/15 12/25/20 History Nebivolol HCl [Bystolic] 20 mg PO DAILY 11/30/15 12/25/20 History Valsartan/Hydrochlorothiazide 1 tab PO DAILY 11/30/15 12/25/20 History [Valsartan-Hctz 320-25 mg Tab] Atorvastatin [Lipitor] 40 mg PO DAILY #90 tab 07/07/18 12/25/20 Rx Latanoprost/Pf [Latanoprost 0.005% 1 drop BOTH EYES HS 09/27/20 12/25/20 History Eye Drop] Multivit-Min/Folic/Vit K/Lycop 1 tab PO HS 09/27/20 12/25/20 History [Men's Multivitamin Tablet] Alpha Lipoic Acid 300mg 300 mg PO BID 12/25/20 12/25/20 History Aspirin 81 mg PO HS 12/25/20 12/25/20 History Colchicine 0.6 mg PO DAILY PRN 12/25/20 12/25/20 History Potassium Chloride ER [K-Dur 10] 10 meq PO HS 12/25/20 12/25/20 History diazePAM [Valium] 5 mg PO DAILY PRN 12/25/20 12/25/20 History hydrALAZINE HCL [Apresoline] 100 mg PO BID 12/25/20 12/25/20 History Levofloxacin [Levaquin] 500 mg PO DAILY 10 Days #10 tab 12/26/20 Rx metroNIDAZOLE [Flagyl] 500 mg PO TID #30 tab 12/26/20 Rx Allergies Allergy/AdvReac Type Severity Reaction Status Date / Time No Known Allergies Allergy Verified 12/25/20 18:06 Physical Exam Vitals: Vital Signs Temp Pulse Resp BP Pulse Ox 12/26/20 05:01 98.1 F 71 16 153/90 98 12/25/20 22:00 82 16 155/85 97 12/25/20 17:32 18 12/25/20 16:30 98.3 F 88 20 128/72 96 Intake and Output 12/25/20 12/26/20 12/26/20 22:59 06:59 14:59 Other: Weight 90.718 kg Results CBC & Chem 7: 12/26/20 03:51 12/26/20 03:51 Labs: Abnormal Lab Results - Last 24 Hours (Table) 12/25/20 12/25/20 12/26/20 Range/Units 17:46 17:46 03:51 WBC 12.5 H (3.8-10.6) k/uL RBC 4.15 L 3.85 L (4.30-5.90) m/uL Hgb 12.5 L (13.0-17.5) gm/dL Hct 38.7 L 36.6 L (39.0-53.0) % Neutrophils # 9.8 H (1.3-7.7) k/uL Sodium 130 L (137-145) mmol/L Chloride 96 L (98-107) mmol/L
[2020-12-26] MEDS: hydrALAZINE HCL 50 MG TAB PO SCH ×2 (12:19→21:20)
[2020-12-26] MEDS: ATORVASTATIN 40 MG TAB PO SCH (12:19)
[2020-12-26] MEDS: hydroCHLOROthiazide 25 MG TAB PO SCH (12:19)
[2020-12-26] MEDS: APIXABAN 5 MG TAB PO SCH ×2 (12:19→21:20)
[2020-12-26] MEDS: NEBIVOLOL 5 MG TAB PO SCH (12:25)
[2020-12-26] MEDS: VALSARTAN 160 MG TAB PO SCH (12:25)
[2020-12-26 17:32] LABS: African American GFR (CKD) 91.8 (60.0-200.0); Anion Gap 15.6 mmol/L (4.00-12.00); BUN/Creat Ratio 15.4 Ratio (12.00-20.00); Blood Urea Nitrogen 15.4 mg/dL (9.0-27.0); Calcium 8.5 mg/dL (8.7-10.3); Carbon Dioxide 21.4 mmol/L (21.6-31.8); Non-African American GFR(CKD) 79.2 (60.0-200.0); Potassium 3.7 mmol/L (3.5-5.5)
--- NOTE | 2020-12-26 17:49 | P.GSCN ---
History of Present Illness Consult date: 12/26/20 Reason for Consult: Diverticulitis History of present illness: 65-year-old male known to our service.Patient underwent recent laparoscopic repair left inguinal hernia. Came to the hospital with 2 day history of right lower quadrant pain. Some nausea. Diminished appetite. Started on antibiotics last night. Patient says his pain is mostly resolved. CAT scan shows diverticulitis and initial dictation stated possible abscess. White blood cell count normalized today. History of known diverticulosis. Review of Systems The patient denies any acute changes in vision or hearing, no dysphagia or odynophagia, no chest pain or shortness of breath, no dysuria or hematuria, no headache, no runny nose, no rectal bleeding or melena, no unexplained weight loss Past Medical History Past Medical History: Atrial Fibrillation, Hypertension Additional Past Medical History / Comment(s): heart murmer, sleep apnea, hydrocele History of Any Multi-Drug Resistant Organisms: None Reported Past Surgical History: Hernia Repair Additional Past Surgical History / Comment(s): vasectomy Past Anesthesia/Blood Transfusion Reactions: No Reported Reaction Past Psychological History: No Psychological Hx Reported Smoking Status: Never smoker Past Alcohol Use History: Rare Past Drug Use History: Marijuana - Past Family History Mother Family Medical History: Cancer Additional Family Medical History / Comment(s): LUNG CANCER Father Family Medical History: Cancer Additional Family Medical History / Comment(s): BLADDER CANCER Medications and Allergies Home Medications Medication Instructions Recorded Confirmed Type Apixaban [Eliquis] 5 mg PO BID 11/30/15 12/25/20 History Nebivolol HCl [Bystolic] 20 mg PO DAILY 11/30/15 12/25/20 History Valsartan/Hydrochlorothiazide 1 tab PO DAILY 11/30/15 12/25/20 History [Valsartan-Hctz 320-25 mg Tab] Atorvastatin [Lipitor] 40 mg PO DAILY #90 tab 07/07/18 12/25/20 Rx Latanoprost/Pf [Latanoprost 0.005% 1 drop BOTH EYES HS 09/27/20 12/25/20 History Eye Drop] Multivit-Min/Folic/Vit K/Lycop 1 tab PO HS 09/27/20 12/25/20 History [Men's Multivitamin Tablet] Alpha Lipoic Acid 300mg 300 mg PO BID 12/25/20 12/25/20 History Aspirin 81 mg PO HS 12/25/20 12/25/20 History Colchicine 0.6 mg PO DAILY PRN 12/25/20 12/25/20 History Potassium Chloride ER [K-Dur 10] 10 meq PO HS 12/25/20 12/25/20 History diazePAM [Valium] 5 mg PO DAILY PRN 12/25/20 12/25/20 History hydrALAZINE HCL [Apresoline] 100 mg PO BID 12/25/20 12/25/20 History Levofloxacin [Levaquin] 500 mg PO DAILY 10 Days #10 tab 12/26/20 Rx metroNIDAZOLE [Flagyl] 500 mg PO TID #30 tab 12/26/20 Rx Allergies Allergy/AdvReac Type Severity Reaction Status Date / Time No Known Allergies Allergy Verified 12/25/20 18:06 Surgical - Exam Vital Signs Temp Pulse Resp BP Pulse Ox 98.3 F 88 20 128/72 96 12/25/20 16:30 12/25/20 16:30 12/25/20 16:30 12/25/20 16:30 12/25/20 16:30 Physical exam: General: Well-developed, well-nourished HEENT: Normocephalic, sclerae nonicteric Abdomen: Minimal right lower quadrant tenderness nondistended Extremities: No edema Neuro: Alert and oriented Results - Labs 12/26/20 03:51 12/26/20 03:51 Abnormal Lab Results - Last 24 Hours (Table) 12/25/20 12/25/20 12/26/20 Range/Units 17:46 17:46 03:51 WBC 12.5 H (3.8-10.6) k/uL RBC 4.15 L 3.85 L (4.30-5.90) m/uL Hgb 12.5 L (13.0-17.5) gm/dL Hct 38.7 L 36.6 L (39.0-53.0) % Neutrophils # 9.8 H (1.3-7.7) k/uL Sodium 130 L (137-145) mmol/L Chloride 96 L (98-107) mmol/L Carbon Dioxide (21.6-31.8) mmol/L Anion Gap (4.00-12.00) mmol/L Calcium (8.7-10.3) mg/dL 12/26/20 Range/Units 03:51 WBC (3.8-10.6) k/uL RBC (4.30-5.90) m/uL Hgb (13.0-17.5) gm/dL Hct (39.0-53.0) % Neutrophils # (1.3-7.7) k/uL Sodium (137-145) mmol/L Chloride (98-107) mmol/L Carbon Dioxide 21.4 L (21.6-31.8) mmol/L Anion Gap 15.60 H (4.00-12.00) mmol/L Calcium 8.5 L (8.7-10.3) mg/dL Diabetes panel 12/25/20 12/26/20 Range/Units 17:46 03:51 Sodium 130 L 136 (137-145) mmol/L Potassium 3.7 3.7 (3.5-5.1) mmol/L Chloride 96 L 99 (98-107) mmol/L Carbon Dioxide 23 21.4 L (22-30) mmol/L BUN 17 15.4 (9-20) mg/dL Creatinine 0.86 1.0 (0.66-1.25) mg/dL Glucose 99 110 (74-99) mg/dL Calcium 9.2 8.5 L (8.4-10.2) mg/dL AST 26 (17-59) U/L ALT 20 (4-49) U/L Alkaline Phosphatase 121 (38-126) U/L Total Protein 6.7 (6.3-8.2) g/dL Albumin 3.9 (3.5-5.0) g/dL Calcium panel 12/25/20 12/26/20 Range/Units 17:46 03:51 Calcium 9.2 8.5 L (8.4-10.2) mg/dL Albumin 3.9 (3.5-5.0) g/dL Pituitary panel 12/25/20 12/26/20 Range/Units 17:46 03:51 Sodium 130 L 136 (137-145) mmol/L Potassium 3.7 3.7 (3.5-5.1) mmol/L Chloride 96 L 99 (98-107) mmol/L Carbon Dioxide 23 21.4 L (22-30) mmol/L BUN 17 15.4 (9-20) mg/dL Creatinine 0.86 1.0 (0.66-1.25) mg/dL Glucose 99 110 (74-99) mg/dL Calcium 9.2 8.5 L (8.4-10.2) mg/dL Adrenal panel 12/25/20 12/26/20 Range/Units 17:46 03:51 Sodium 130 L 136 (137-145) mmol/L Potassium 3.7 3.7 (3.5-5.1) mmol/L Chloride 96 L 99 (98-107) mmol/L Carbon Dioxide 23 21.4 L (22-30) mmol/L BUN 17 15.4 (9-20) mg/dL Creatinine 0.86 1.0 (0.66-1.25) mg/dL Glucose 99 110 (74-99) mg/dL Calcium 9.2 8.5 L (8.4-10.2) mg/dL Total Bilirubin 0.6 (0.2-1.3) mg/dL AST 26 (17-59) U/L ALT 20 (4-49) U/L Alkaline Phosphatase 121 (38-126) U/L Total Protein 6.7 (6.3-8.2) g/dL Albumin 3.9 (3.5-5.0) g/dL Assessment and Plan (1) Diverticulitis Narrative/Plan: 65-year-old male with right lower quadrant pain and CAT scan findings of diverticulitis. CAT scan films reviewed with radiology. Certainly diverticulitis along the right pelvic sidewall is seen but no definite abscess identified. Increase diet. May discharge if tolerates. Home on oral antibio tics. Follow-up as outpatient. Current Visit: Yes Status: Acute Code(s): K57.92 - DVTRCLI OF INTEST, PART UNSP, W/O PERF OR ABSCESS W/O BLEED SNOMED Code(s): 334680861
[2020-12-26] MEDS ORDERED: ASPIRIN 81 MG PO SCH (21:00)
[2020-12-26] MEDS ORDERED: LATANOPROST 0.005% OPHTH DROPS 2.5 ML BTL BOTH EYES SCH (21:00)
[2020-12-27] MEDS: SODIUM CHLORIDE 0.9% 1,000 ML IV SCH ×2 (04:35→12:17)
[2020-12-27] MEDS: PIPERACILLIN-TAZOBACTAM 3.375 GM in SODIUM CHLORIDE 0.9% 100 ML IVPB SCH ×2 (04:41→13:04)
[2020-12-27 04:47] VITALS: PULSE 75
[2020-12-27] MEDS: APIXABAN 5 MG TAB PO SCH (08:58)
[2020-12-27] MEDS: ATORVASTATIN 40 MG TAB PO SCH (08:58)
[2020-12-27] MEDS: hydrALAZINE HCL 50 MG TAB PO SCH (08:58)
[2020-12-27] MEDS: VALSARTAN 160 MG TAB PO SCH (08:59)
[2020-12-27] MEDS: hydroCHLOROthiazide 25 MG TAB PO SCH (08:59)
[2020-12-27] MEDS: NEBIVOLOL 5 MG TAB PO SCH (08:59)
[2020-12-27 09:11] VITALS: BP 169/96; RESP 18; TEMP 98.1
--- NOTE | 2020-12-27 13:03 | P.DS ---
Providers Date of admission: 12/25/20 19:39 Expected date of discharge: 12/27/20 Attending physician: Estefania Overton Consults: 12/25/20 20:09 Consult Physician Routine Consulting Provider: Reji Alonzo Consult Reason/Comments: diverticulitis with peridiverticular abscess Do you want consulting provider notified?: Yes Primary care physician: Estefania Overton [facility] Course: HISTORY OF PRESENT ILLNESS This is a 65-year-old male patient of Dr. Overton with asthma, history of hypertension, hyperlipidemia, chronic atrial fibrillation on eliquis, glaucoma. Patient states that he has been diagnosed with diverticulosis in the past but has never had diverticulitis. About 30 hours ago he started having right lower quadrant abdominal pain which continued and worsened. He denies having any vomiting. Prior to this pain, patient had diarrhea about 48 hours prior, took 1 Imodium and diarrhea resolved. He normally has a bowel movement every day. He denies having any blood in his stools. He is known to have a left-sided inguinal hernia repair 09/28/2020. He denies having any nuts or seeds recently. Patient came into [facility] emergency center for evaluation, vital signs were stable. Initial CBC on WBC 12.5, hemoglobin 13.2 and platelet count 281. Sodium 130, potassium 3.7, chloride 96, creatinine 0.86, CMP otherwise within normal limits. Urinalysis negative. Coronavirus PCR not detected. CAT scan of the abdomen and pelvis with contrast revealed focal diverticulitis of the mid sigmoid colon. Small. Diverticular abscess. Normal appendix. Left side scrotal hernia or high position of the testicle. There is clearing of the incarcerated left inguinal hernia containing sigmoid colon compared to old exam. Mild rayshawn-nephrotic stranding unchanged. Pericardial effusion unchanged. Patient was started on IV Zosyn, IV fluids, morphine for pain and [facility] Patient is seen in the emergency center waiting for a bed. 12/27: Patient has been seen by Dr. Alonzo and after review of CAT scan with radiology, no definite abscess was identified, plan to increase diet and discharge if patient tolerates diet with plan for oral antibiotics. Patient can follow-up with Dr. dominguez as an outpatient. Patient remains afebrile, heart rate 75, blood pressure 160/72, pulse ox 98% on room air. Repeat blood work done yesterday revealed normal WBC of 9.9, hemoglobin 12.5. CO2 is 21. Otherwise within normal limits. Patient will be discharged home today in stable condition. ASSESSMENT AND PLAN 1. Acute focal diverticulitis of the mid sigmoid colon and small peridiverticular abscess. 2. Hypertension. 3. Hyperlipidemia. 4. Chronic atrial fibrillation. 5. Glaucoma. 6. Coronary artery disease status post stent of the mid left circumflex in 2019. 7. COVID-19 testing negative. DISCHARGE PLAN home. Impression and plan of care have been directed as dictated by the signing physician. Gianna Maradiaga nurse practitioner acting as scribe for signing physician Patient Condition at Discharge: Good Plan - Discharge Summary Discharge Rx Participant: Yes New Discharge Prescriptions: New metroNIDAZOLE [Flagyl] 500 mg PO TID #30 tab Levofloxacin [Levaquin] 500 mg PO DAILY 10 Days #10 tab Continue Valsartan/Hydrochlorothiazide [Valsartan-Hctz 320-25 mg Tab] 1 tab PO DAILY Nebivolol HCl [Bystolic] 20 mg PO DAILY Apixaban [Eliquis] 5 mg PO BID Atorvastatin [Lipitor] 40 mg PO DAILY #90 tab Multivit-Min/Folic/Vit K/Lycop [Men's Multivitamin Tablet] 1 tab PO HS Alpha Lipoic Acid 300mg 300 mg PO BID Colchicine 0.6 mg PO DAILY PRN PRN Reason: GOUT hydrALAZINE HCL [Apresoline] 100 mg PO BID Latanoprost/Pf [Latanoprost 0.005% Eye Drop] 1 drop BOTH EYES HS Aspirin 81 mg PO HS diazePAM [Valium] 5 mg PO DAILY PRN PRN Reason: Anxiety Potassium Chloride ER [K-Dur 10] 10 meq PO HS Discharge Medication List Apixaban [Eliquis] 5 mg PO BID 11/30/15 [History] Nebivolol HCl [Bystolic] 20 mg PO DAILY 11/30/15 [History] Valsartan/Hydrochlorothiazide [Valsartan-Hctz 320-25 mg Tab] 1 tab PO DAILY 11/30/15 [History] Atorvastatin [Lipitor] 40 mg PO DAILY #90 tab 07/07/18 [Rx] Latanoprost/Pf [Latanoprost 0.005% Eye Drop] 1 drop BOTH EYES HS 09/27/20 [History] Multivit-Min/Folic/Vit K/Lycop [Men's Multivitamin Tablet] 1 tab PO HS 09/27/20 [History] Alpha Lipoic Acid 300mg 300 mg PO BID 12/25/20 [History] Aspirin 81 mg PO HS 12/25/20 [History] Colchicine 0.6 mg PO DAILY PRN 12/25/20 [History] Potassium Chloride ER [K-Dur 10] 10 meq PO HS 12/25/20 [History] diazePAM [Valium] 5 mg PO DAILY PRN 12/25/20 [History] hydrALAZINE HCL [Apresoline] 100 mg PO BID 12/25/20 [History] Levofloxacin [Levaquin] 500 mg PO DAILY 10 Days #10 tab 12/26/20 [Rx] metroNIDAZOLE [Flagyl] 500 mg PO TID #30 tab 12/26/20 [Rx] Follow up Appointment(s)/Referral(s): Reji Alonzo MD [Medical Doctor] - 2 Weeks Estefania Overton MD [Primary Care Provider] - 1-2 days Patient Instructions/Handouts: Metronidazole (By mouth), Levofloxacin (By mouth), Diverticulitis (DC) Activity/Diet/Wound Care/Special Instructions: limit activity until seen by Follow Diet as instructed by Dr. Overton Call 's office to schedule appointments when arrive at home.
--- NOTE | 2020-12-27 14:20 | P.PN ---
<Mary Alcaraz - Last Filed: 12/27/20 14:14> Subjective Progress Note Date: 12/27/20 CHIEF COMPLAINT: Abdominal pain HISTORY OF PRESENT ILLNESS: Surgical service is following regards to patient's diverticulitis. Patient reports very minimal pain in the right lower quadrant. He is tolerating clear liquid diet. He denies any nausea vomiting. He is having flatus. His white count has normalized. He is afebrile. He is asking for more food. PHYSICAL EXAM: VITAL SIGNS: Reviewed. GENERAL: Well-developed in no acute distress. HEENT: No sclera icterus. Extraocular movements grossly intact. Moist buccal mucosa. Head is atraumatic, normocephalic. ABDOMEN: Soft. Nondistended. Minimal tenderness right lower quadrant NEUROLOGIC: Alert and oriented. Cranial nerves II through XII grossly intact. ASSESSMENT: 1. Acute diverticulitis with no evidence of abscess per Dr. Alonzo after reviewing CAT scan with radiologist PLAN: -Advance diet to full liquids and then as tolerated -Recommend oral antibiotics at discharge -Patient is stable for discharge from surgical standpoint Physician Carbider note has been reviewed by physician. Signing provider agrees with the documented findings, assessment, and plan of care. Objective - Vital Signs Vital signs: Vital Signs Temp 98.1 F 12/27/20 08:00 Pulse 75 12/27/20 08:00 Resp 18 12/27/20 08:00 BP 169/96 12/27/20 08:00 Pulse Ox 98 12/27/20 08:00 Intake & Output 12/26/20 12/27/20 12/27/20 18:59 06:59 18:59 Intake Total 240 2340 720 Balance 240 2340 720 Weight 90.718 kg Intake: Intake, IV Titration 2100 Amount Piperacillin-Tazobactam 3 100 .375 gm In Sodium Chloride 0.9% 100 ml @ 25 mls/hr IVPB Q8H ANDREA Rx#: [id number] Sodium Chloride 0.9% 1, 2000 000 ml @ 130 mls/hr IV . Q7H42M [facility] Rx#:[id number] Oral 240 240 720 Other: Voiding Method Toilet - Labs CBC & Chem 7: 12/26/20 03:51 12/26/20 03:51 Labs: Abnormal Lab Results - Last 24 Hours (Table) 12/26/20 Range/Units 03:51 Carbon Dioxide 21.4 L (21.6-31.8) mmol/L Anion Gap 15.60 H (4.00-12.00) mmol/L Calcium 8.5 L (8.7-10.3) mg/dL Microbiology - Last 24 Hours (Table) 12/25/20 20:15 Blood Culture - Preliminary Blood No Growth after 24 hours 12/25/20 20:00 Blood Culture - Preliminary Blood No Growth after 24 hours <Reji Alonzo - Last Filed: 12/27/20 16:00> Subjective As above. Patient doing well today. Pain is minimal. Will increase diet. May discharge. Objective - Vital Signs Vital signs: Vital Signs Temp 98.1 F 12/27/20 08:00 Pulse 75 12/27/20 08:00 Resp 18 12/27/20 08:00 BP 169/96 12/27/20 08:00 Pulse Ox 98 12/27/20 08:00 Intake & Output 12/26/20 12/27/20 12/27/20 18:59 06:59 18:59 Intake Total 240 2340 720 Balance 240 2340 720 Weight 90.718 kg 90.718 kg Intake: Intake, IV Titration 2100 Amount Piperacillin-Tazobactam 3 100 .375 gm In Sodium Chloride 0.9% 100 ml @ 25 mls/hr IVPB Q8H ANDREA Rx#: [id number] Sodium Chloride 0.9% 1, 2000 000 ml @ 130 mls/hr IV . Q7H42M [facility] Rx#:[id number] Oral 240 240 720 Other: Voiding Method Toilet - Labs CBC & Chem 7: 12/26/20 03:51 12/26/20 03:51 Labs: Abnormal Lab Results - Last 24 Hours (Table) 12/26/20 Range/Units 03:51 Carbon Dioxide 21.4 L (21.6-31.8) mmol/L Anion Gap 15.60 H (4.00-12.00) mmol/L Calcium 8.5 L (8.7-10.3) mg/dL Microbiology - Last 24 Hours (Table) 12/25/20 20:15 Blood Culture - Preliminary Blood No Growth after 24 hours 12/25/20 20:00 Blood Culture - Preliminary Blood No Growth after 24 hours Assessment and Plan (1) Diverticulitis Status: Acute Code(s): K57.92 - DVTRCLI OF INTEST, PART UNSP, W/O PERF OR ABSCESS W/O BLEED SNOMED Code(s): 580098504
[2020-12-27 14:48] VITALS: BMI 27.1
--- NOTE | 2021-01-01 11:39 | CDI ---
Documentation Clarification Form Date: 01/01/2021 11:27:00 AM From: Clara Redding Admit Date: 12/25/2020 07:39:00 PM Patient Name: Levi Leo Visit Number: [id number] Discharge Date: 12/27/2020 02:00:00 PM ATTENTION: The Clinical Documentation Specialists (CDI) and [facility] Coding Staff appreciate your assistance in clarifying documentation. Please respond to the clarification below the line at the bottom and electronically sign. The CDI & [facility] Coding staff will review the response and follow-up if needed. Please note: Queries are made part of the Legal Health Record. If you have any questions, please contact the author of this message via ITS. Dr. Estefania Overton Conflicting documentation has been found in the medical record. As attending physician, please provide clarification. PN10/14 "no definite abscess after talking to radiologist." Per [facility] ASSESS AND PLAN: "Acute focal diverticulitis of the mid sigmoid colon and small peridiverticular abscess." History/Risk Factors: Diverticulitis Treatment: IV Zosyn 3.375 g IV every 8 hours and morphine as needed for pain. Please clarify which diagnosis is most appropriate: [ ] Diverticulitis with peridiverticular abscess [ ] No definite abscess [ ] Other (please specify) [ ] Unable to determine MTDD
== END 2020-12-27 14:00 | disposition home or self-care (01) | DRG 392 ==
LOC: EC 16:17 → 5NMEDONC 19:39 → 1SOBS 12-26 18:09
PROVIDERS: ADMIT Internal Medicine; ATTEND Internal Medicine
DX: K57.32 Diverticulitis of large intestine without perforation or abscess without bleeding (principal); I31.3 Pericardial effusion (noninflammatory); I48.20 Chronic atrial fibrillation, unspecified; K40.30 Unilateral inguinal hernia, with obstruction, without gangrene, not specified as recurrent; E78.5 Hyperlipidemia, unspecified; Z87.891 Personal history of nicotine dependence; Z20.822 Contact with and (suspected) exposure to COVID-19; H40.9 Unspecified glaucoma; I10 Essential (primary) hypertension; G62.9 Polyneuropathy, unspecified; I25.10 Atherosclerotic heart disease of native coronary artery without angina pectoris; J45.909 Unspecified asthma, uncomplicated; Z79.01 Long term (current) use of anticoagulants; Z79.82 Long term (current) use of aspirin; Z79.899 Other long term (current) drug therapy; Z80.1 Family history of malignant neoplasm of trachea, bronchus and lung; Z80.52 Family history of malignant neoplasm of bladder; Z95.5 Presence of coronary angioplasty implant and graft; Z98.890 Other specified postprocedural states; Z87.19 Personal history of other diseases of the digestive system
CPT/HCPCS: 36415; 74177; 80048; 80053; 81003; 82150; 83605; 83690; 85025; 87040; 87635; 93005; 96361; 96374; 96375; 99285

== ENCOUNTER → 2022-02-10 | Outpatient (CLI) | payer MEDICARE, BC ==
--- NOTE | 2022-02-11 07:25 | US ---
EXAMINATION TYPE: US venous doppler duplex LE DATE OF EXAM: 02/10/2022 4:13 PM COMPARISON: NONE CLINICAL HISTORY: M79.605 Pain left leg I87.2 Venous insufficiency. SIDE PERFORMED: Bilateral TECHNIQUE: The lower extremity deep venous system is examined utilizing real time linear array sonog elías with graded compression, doppler sonography and color-flow sonography. VESSELS IMAGED: Common Femoral Vein Deep Femoral Vein Greater Saphenous Vein * Femoral Vein Popliteal Vein Small Saphenous Vein * Proximal Calf Veins (* superficial vessels) Right Leg: Negative for DVT Left Leg: Negative for DVT IMPRESSION: 1. Bilateral lower extremity ultrasound negative for deep venous thrombosis.
== END | disposition home or self-care (01) ==
LOC: RADUSWWP 15:34
PROVIDERS: ATTEND Internal Medicine
DX: I87.2 Venous insufficiency (chronic) (peripheral) (principal); M79.605 Pain in left leg
CPT/HCPCS: 93970

== ENCOUNTER → 2022-12-15 | Day surgery (SDC) | payer MEDICARE, BC ==
[2022-12-11 10:48] VITALS: BMI 25.7
[~2022-12-15] MED LIST changes: -ACETAMINOPHEN TAB 325 MG TAB PO SCH; -ACETAMINOPHEN TAB 500 MG TAB PO PRN; -BUPIVACAINE (PF) 0.25% 30 ML VIAL SQ ONE; -DEXAMETHASONE SOD PHOSPHATE 4 MG/ML 1 ML VIAL IV ONE; -GLYCOPYRROLATE 0.2 MG/ML 2 ML VIAL ONE; -HEPARIN SODIUM,PORCINE/PF 5,000 UNIT/0.5 ML SYRINGE SQ PRN; -HYDROmorphone (PF) 1 MG/ML ONE; -HYDROmorphone 0.5 MG/0.5 ML SYRINGE IVP PRN; -IBUPROFEN 600 MG TAB PO SCH; -LACTATED RINGERS 1,000 ML IV ONE; -LACTATED RINGERS 1,000 ML IV SCH; -LIDOCAINE 1% (10MG/ML) FOR IV START INTRADERMA PRN; -LIDOCAINE 1% INJ 10MG/ML (20 ML MDV) ONE; -MIDAZOLAM 2 MG/2 ML VIAL IV ONE; -MIDAZOLAM 2 MG/2 ML VIAL ONE; -NEOSTIGMINE 1 MG/ML 10 ML VIAL ONE; -ONDANSETRON 4 MG/2 ML VIAL IVP ONE; -PROPOFOL 10 MG/ML 20 ML VIAL IV ONE; -ROCURONIUM 10 MG/ML (5 ML VIAL) IV ONE; -SCOPOLAMINE 1.5MG/72HR PATCH TRANSDERM ONE; +SIMETHICONE 40 MG/0.6 ML DROPS 2,000 MG/30 ML BOTTLE PO ONE; -SUCCINYLCHOLINE CHLORIDE 100 MG/5 ML SYR IV ONE; -TAMSULOSIN 0.4 MG CAP.ER.24H PO ONE; -fentaNYL (PF) 50 MCG/ML 2 ML AMP ONE
[2022-12-15 06:50] VITALS: BP 211/110; PULSE 76; RESP 16; TEMP 97
== END ==
LOC: ORWHC2ENDO 06:17
PROVIDERS: ATTEND Internal Medicine Gastroenterology
DX: D50.0 Iron deficiency anemia secondary to blood loss (chronic) (principal)
CPT/HCPCS: 91110

== ENCOUNTER → 2023-06-08 | Outpatient (CLI) | payer MEDICARE, BC ==
--- NOTE | 2023-06-08 16:18 | XR ---
EXAMINATION TYPE: XR femur RT DATE OF EXAM: 06/08/2023 COMPARISON: None HISTORY: Pain right hip TECHNIQUE: 2 view right femur FINDINGS: There is narrowing of the right hip joint space. No acute fractures or dislocations are herb dent. There is narrowing of the joint spaces at the knee. Within the mid diaphysis of the femur there is mild thickening of the medial cortex. Consider CT for additional evaluation. No Codman's triangle is identified. No soft tissue component is identified. Th e medullary canal appears intact. IMPRESSION: 1. Nonspecific mild thickening of the mid medial femoral cortex. Consider CT for additional evaluati on right 2. Degenerative joint changes at the knee.
--- NOTE | 2023-06-08 16:19 | XR ---
EXAMINATION TYPE: XR Hip Complete RT DATE OF EXAM: 06/08/2023 COMPARISON: None HISTORY: Pain at the hip TECHNIQUE: 2 view right hip FINDINGS: Femoral head articulates with the acetabulum. Joint space is mildly narrowed. No acute frac tures or dislocations are evident. Vascular calcification is evident. IMPRESSION: 1. Mild osteoarthritic degenerative change right hip
== END | disposition home or self-care (01) ==
LOC: RADXRMAIN 14:56
PROVIDERS: ATTEND Internal Medicine
DX: M16.11 Unilateral primary osteoarthritis, right hip (principal); M89.351 Hypertrophy of bone, right femur
CPT/HCPCS: 73502

== ENCOUNTER → 2023-06-22 | Outpatient (CLI) | payer MEDICARE, BC ==
--- NOTE | 2023-06-22 09:45 | CT ---
EXAMINATION TYPE: CT femur RT wo con DATE OF EXAM: 06/22/2023 COMPARISON: X-ray 06/08/2023 HISTORY: Pt had proximal/mid femur pain, was treated for bursitis, abnormal findings on diagnostic im aging: Nonspecific mild thickening of the mid medial femoral cortex. Xray from 06/[address] DLP: 883.50 mGycm Automated exposure control for dose reduction was used. FINDINGS: Advanced right SI joint hypertrophic arthropathy. There is moderate hip arthropathy correlate for fem oral acetabular impingement. A tiny spur at the lung which are greater trochanter. There is no acute fracture or dislocation. Cortical thickening along the mid diaphysis of the femur is nonspecific. No destructive changes or soft tissue mass. The degree of muscular atrophy with vascular calcifications and a small suprapatellar bursal fluid co llection. Small fat-containing right inguinal hernia. Mild changes of osteoarthritis with marginal sp urring of the tricompartmental joint spaces of the knee. IMPRESSION: 1. CORTICAL THICKENING MEDIAL DIAPHYSIS OF THE RIGHT FEMUR IS NONSPECIFIC WITH NO DESTRUCTIVE CHANGES OR ASSOCIATED SOFT TISSUE MASS AND LIKELY IS CHRONIC. 2. SMALL SUPRAPATELLAR BURSAL FLUID COLLECTION. 3. ARTHROPATHY OF THE HIP AND KNEE JOINTS. 4. SEVERE RIGHT SI JOINT ARTHROPATHY.
== END | disposition home or self-care (01) ==
LOC: RADCTMAIN 08:03
PROVIDERS: ATTEND Internal Medicine
DX: M46.1 Sacroiliitis, not elsewhere classified (principal); M89.8X8 Other specified disorders of bone, other site; M16.11 Unilateral primary osteoarthritis, right hip; M17.11 Unilateral primary osteoarthritis, right knee; R93.89 Abnormal findings on diagnostic imaging of other specified body structures

== ENCOUNTER → 2024-07-01 | Outpatient (CLI) | payer MEDICARE, BC ==
--- NOTE | 2024-07-01 13:49 | CTL ---
EXAMINATION TYPE: CT Low Dose Lung DATE OF EXAM ORDERED: 07/01/2024 COMPARISON: None CLINICAL INDICATION: Male, 69 years old with history of Z12.2 ENCNTR SCREEN FOR MALIGNANT NEOPLASM Z8 7.891; PHH, personal tobacco use, Lung cancer screening, History of Smoking/tobacco use. TECHNIQUE: Low dose computed tomography scan was performed through the chest at 1 mm thick sections a nd reconstructed images in multiple planes at 1 mm and [address] DLP: 105.[address] CTDI: 2.7 mGy Automated exposure control for dose reduction was used. CT DIAGNOSTIC QUALITY: Satisfactory EXAMINATION TYPE: CT Low Dose Lung DATE OF EXAM ORDERED: 07/01/2024 CLINICAL INDICATION: Male, 69 years old with history of Z12.2 ENCNTR SCREEN FOR MALIGNANT NEOPLASM Z8 7.891, history of tobacco use, Lung cancer screening CT DLP: 105.[address] CTDI: 2.7 mGy Automated exposure control for dose reduction was used. Comparison: None TECHNIQUE: Low dose computed tomography scan was performed through the chest at 1 mm thick sections a nd reconstructed images in multiple planes at 1 mm and [address] DIAGNOSTIC QUALITY: Satisfactory FINDINGS: There are mild emphysematous changes. There is a 4 mm groundglass nodule in the left lower lobe. There is no lung consolidation or abnormal interstitial density. There is no mediastinal, hilar or axillary adenopathy. There is a mild pericardial effusion. There is no pleural effusion, pleural thickening or pneumothorax. No focal osseous lesions are seen. Limited scans the upper abdomen reveals no gross abnormality IMPRESSION: 1. Lung rads Category 2 benign. Continue routine screening at yearly intervals. 2. No acute cardiopulmonary disease. 3 mild pericardial effusion. 4. Mild emphysematous changes [facility], , 07/01/2024 1:47 PM
== END | disposition home or self-care (01) ==
LOC: RADCTMAIN 13:03
PROVIDERS: ATTEND Internal Medicine
DX: Z12.2 Encounter for screening for malignant neoplasm of respiratory organs (principal); I31.39 Other pericardial effusion (noninflammatory); J43.9 Emphysema, unspecified; Z87.891 Personal history of nicotine dependence
CPT/HCPCS: 71271

== ENCOUNTER → 2024-07-02 | Outpatient (CLI) | payer MEDICARE, BC ==
--- NOTE | 2024-07-02 12:15 | MR ---
MRI kidneys with and without contrast HISTORY: Right adrenal adenoma. COMPARISON: None. TECHNIQUE: Multiecho multiplanar images of the abdomen and kidneys were obtained with and without con trast. FINDINGS: There is an 8 - 9 mm mass in the right adrenal gland consistent with small adenoma. There are no left adrenal masses. There is a 9 mm hyperdense cyst in the posterior right kidney and a 13.5 mm hyperdense cyst in the la teral left kidney. There is simple cortical cysts of both kidneys. There is no renal mass or hydronep hrosis. There is no retroperitoneal adenopathy. There are no focal masses within the liver, pancreas, or spleen. The bowel loops are normal in caliber and there is no bowel obstruction. There is no free intraperito sy fluid. IMPRESSION: 8 to 9 mm right adrenal adenoma. Bilateral renal cysts as described above. [facility], Workstation: [id number] 07/02/2024 12:12 PM
== END | disposition home or self-care (01) ==
LOC: RADMRIMAIN 10:48
PROVIDERS: ATTEND Internal Medicine
DX: D35.01 Benign neoplasm of right adrenal gland (principal); N28.1 Cyst of kidney, acquired
CPT/HCPCS: 74183; A9585

== ENCOUNTER → 2024-09-13 | Outpatient (CLI) | payer MEDICARE, BC ==
--- NOTE | 2024-09-13 14:53 | XR ---
EXAMINATION TYPE: XR foot complete LT DATE OF EXAM: 09/13/2024 2:46 PM COMPARISON: None. CLINICAL INDICATION: Male, 69 years old with history of M79.672 PAIN IN LEFT FOOT, pain TECHNIQUE: Frontal, lateral, and oblique images of the left foot are obtained. FINDINGS: There is no acute fracture/dislocation evident in the left foot. The joint spaces in the left foot appear within normal limits. The overlying soft tissue appears unremarkable. IMPRESSION: There is no acute fracture or dislocation in the left foot. [facility], , 09/13/2024 2:51 PM
== END | disposition home or self-care (01) ==
LOC: RADXRMAIN 14:25
PROVIDERS: ATTEND Student in an Organized Health Care Education/Training Program
DX: M79.672 Pain in left foot (principal)

== ENCOUNTER → 2024-10-11 | Outpatient (CLI) | payer MEDICARE, BC | LOC: CPPFTMAIN 08:14 | PROVIDERS: ATTEND Internal Medicine | DX: I27.20 Pulmonary hypertension, unspecified (principal); J43.2 Centrilobular emphysema; F12.90 Cannabis use, unspecified, uncomplicated; Z87.891 Personal history of nicotine dependence | CPT/HCPCS: 94060; 94726; 94729 ==